=== PATIENT | male | born 1980 | race Caucasian/White ===

== ENCOUNTER 2021-11-03 20:05 | Emergency (ER) | payer OTHER ==
[~2021-11-03] VITALS: Ht 175.3 cm; Wt 77.1 kg
== END 2021-11-03 22:40 | disposition home or self-care (01) ==
LOC: ER 20:05
DX: S46.211A Strain of muscle, fascia and tendon of other parts of biceps, right arm, initial encounter (principal); X50.0XXA Overexertion from strenuous movement or load, initial encounter
CPT/HCPCS: 73060; 76882; 99284-25; A9270